=== PATIENT | female | born 1985 ===

== ENCOUNTER 2022-03-08 17:02 | Inpatient (IN) | payer OTHER ==
--- NOTE | 2022-03-08 22:05 | Ultrasound Report ---
ULTRASOUND OBSTETRIC LIMITED INDICATION / CLINICAL INFORMATION: Evaluate amniotic fluid index. COMPARISON: None available. FINDINGS: AMNIOTIC FLUID INDEX (cm) = 1.9 PRESENTATION: Cephalic. HEART RATE (beats per minute): 135 ADDITIONAL FINDINGS: None. IMPRESSION: 1. Abnormally decreased amniotic fluid index of 1.9 cm. 2. Single live intrauterine . Signer Name: Dav Goss MD Signed: 03/08/2022 10:01 PM Workstation Name: [id number]
[2022-03-09] MEDS ORDERED: CARBOPROST TROMETHAMINE 250 MCG/1 ML INJ IM PRN (00:32)
[2022-03-09] MEDS ORDERED: ePHEDrine SULFATE 50 MG/1 ML INJ IV PRN (00:32)
[2022-03-09] MEDS ORDERED: ACETAMINOPHEN 325 MG TAB PO PRN (00:32)
[2022-03-09] MEDS ORDERED: METHYLERGONOVINE MALEATE 0.2 MG/ML VIAL IM PRN (00:32)
[2022-03-09] MEDS ORDERED: BUTORPHANOL 2 MG/1 ML INJ IV PRN (00:32)
[2022-03-09] MEDS ORDERED: fentaNYL 100 MCG/2 ML INJ IV PRN (00:32)
--- NOTE | 2022-03-09 00:36 | History and Physical Report ---
History of Present Illness Date of examination: 03/09/22 Chief complaint: Oligohydramnios History of present illness: 37-year-old at 34-4/7 weeks gestation presents to OB triage from the office with a request for obtaining an OB limited ultrasound to evaluate the amniotic fluid index for the presence of oligohydramnios. There is no vaginal bleeding there are irregular contractions. There is good movement. The patient's clinical history is equivocal for leaking of fluid. OB ultrasound limited revealed an amniotic fluid index of 1.9 cm. This fulfills the contemporary clinical criteria for oligohydramnios. The OB ultrasound limited also revealed an estimated weight in the 7th percentile. Umbilical artery cord Dopplers were performed as well. The patient is admitted to labor and delivery for management of oligohydramnios. Past History Past Medical History: no pertinent history Past Surgical History: no surgical history Family/Genetic History: none Social history: no significant social history - Obstetrical History Expected Date of Delivery: 04/16/22 Actual Gestation: 34 Week(s) 4 Day(s) : 4 Para: 3 Medications and Allergies Allergies Allergy/AdvReac Type Severity Reaction Status Date / Time No Known Allergies Allergy Verified 03/09/22 00:45 Review of Systems All systems: negative - Vital Signs Vital signs: Vital Signs Pulse Pulse Ox 83 99 03/08/22 21:52 03/08/22 21:52 Temp Pulse Resp BP Pulse Ox 98.4 F 64 18 98/60 98 03/08/22 21:56 03/09/22 00:32 03/08/22 21:56 03/08/22 21:54 03/09/22 00:32 - Physical Exam Breasts: Positive: normal Cardiovascular: Regular rate Lungs: Positive: Normal air movement Abdomen: Positive: normal appearance Genitourinary (Female): Positive: normal external genitalia, normal perenium Vulva: both: normal Vagina: Positive: normal moisture Uterus: Positive: normal size Adnexa: both: normal Anus/Rectum: Positive: normal perianal skin Deep Tendon Reflex Grade: Normal +2 - Obstetrical FHR: category 1 Uterine Contraction Monitor Mode: External Uterine Contraction Pattern: Irregular Uterine Tone Measurement Phase: Contraction Uterine Contraction Intensity: Mild Results Result Diagrams: 03/09/22 01:00 All other labs normal. Ultrasound: report reviewed (OB US Limited= SLIUP. Vertex. Anterior placenta. EFW= 2030 g (7th %-ile). ABRAHAM= 1.9 cm. BPP= 6/8.), image reviewed (Umbilical artery cord doppler images reviewed.) Assessment and Plan - Patient Problems (1) 34 weeks gestation of Current Visit: Yes Status: Acute Plan to address problem: care is up-to-date at [facility]. Morning shift staff to obtain records from the office. GBS culture is ordered. (2) Oligohydramnios in franco in third trimester Current Visit: Yes Status: Acute Plan to address problem: The amniotic fluid index is 1.9 cm. Etiology is unknown. I do not suspect premature rupture membranes (PPROM) because ROM plus test is negative. I recommend induction of labor at 36 weeks gestation per ACOG Committee Opinion 831 (Medically indicated late- and early-term deliveries. ACOG Committee Opinion No. 831. [place] [employer]. Obstet Gynecol 2020;138:e359.). No glucocorticoids at this time as this patient's clinical scenario is not congruent with the criteria for the ALPS trial protocol. Consider maternal- medicine consultation. (3) Small for gestational age fetus during in third trimester Current Visit: Yes Status: Acute Plan to address problem: Estimated weight is in the 7th percentile. Umbilical cord artery Dopplers are normal. (4) AMA (advanced maternal age) multigravida 35+ Current Visit: Yes Status: Acute Plan to address problem: Obtain records from the office this morning to see if there are any test results for NIPT. Consider maternal- medicine consultation.
[2022-03-09] MEDS ORDERED: LACTATED RINGERS 1,000 ML IV SCH (00:45)
[2022-03-09] MEDS ORDERED: OXYTOCIN DRIP 30 UNITS/500 ML BAG IV SCH (01:00)
[2022-03-09 02:56] LABS: Basophils % (Auto) 0.3 % (0.0-1.8); Eosinophils # (Auto) 0.1 K/mm3 (0.0-0.4); Hematocrit 37.1 % (30.3-42.9); Hemoglobin 12.6 gm/dl (10.1-14.3); Lymphocytes # (Auto) 3.7 K/mm3 (1.2-5.4); Lymphocytes % (Auto) 38.3 % (13.4-35.0); Mean Corpuscular HGB Conc 34 % (30-34); Mean Corpuscular Volume 97 fl (79-97); Monocytes # (Auto) 0.9 K/mm3 (0.0-0.8); Platelet Count 241 K/mm3 (140-440); Red Blood Count 3.82 M/mm3 (3.65-5.03)
--- NOTE | 2022-03-09 03:54 | Ultrasound Report ---
US OB BPP wo non-stress, US OB velocimetry umbilcal art, US OB limited INDICATION / CLINICAL INFORMATION: IUGR COMPARISON: Limited OB ultrasound 03/08/2022. TECHNIQUE: Using a transcutaneous probe, multiple grayscale, color Doppler, and spectral Doppler imag es of the uterus and fetus were captured and stored. In addition, cortical velocities were measured a nd are documented below in centimeters per second with SD ratios and RIs as below. The biophysi yari profile this level was performed with measurement of biophysical variable. respiratory thor on, motion, posture and tone, and qualitative amniotic fluid volume. FINDINGS: Single cephalic fetus is demonstrated with heart rate of 150 bpm. The amniotic fluid index is low measuring 1.9 cm. Grade 2 anterior placenta is present no ultrasound abnormality of the placenta demonstrated. Biparietal Diameter = 8.43 cm = 34, 0 weeks, days Head Circumference = 29.22 cm = 32, 2 weeks, days Abdominal Circumference = 28.14 cm = 32, 1 weeks, days Femur Length = 6.47 cm = 33, 3 weeks, days Average Ultrasound Age (AUA) = 33, 0 weeks, days. EDC 04/27/2022. Clinical estimated gestational age is 34 weeks 4 days. Estimated weight = 2030 g growth percentile 7. BREATHING MOVEMENT = 2 GROSS BODY MOVEMENT = 2 TONE = 2 QUALITATIVE AMNIOTIC FLUID VOLUME = 0 TOTAL BIOPHYSICAL SCORE = 6/8. Umbilical cord A: Peak systolic velocities of 37.5, 44.2, and 43.6 were documented with corresponding end-diastolic lucinda ocities of 14.0, 19.4, and 43.3. The SD ratios are 2.68, 2.28, 1.01 respectively. The resistive indic es are 0.63, 0.56, 0.01 respectively. . IMPRESSION: 1. Oligohydramnios with little change since comparison study. 2. Single living fetus with heart rate of 150 bpm. 3. Biophysical profile score of 6/8 secondary to oligohydramnios. 4. Cord Dopplers as detailed. Signer Name: Reji Salas II, MD Signed: 03/09/2022 3:50 AM Workstation Name: [id number]
[2022-03-09] MEDS ORDERED: LIDOCAINE (2%) 20 MG/1 ML VIAL 20 ML MDV INFILTRATI ONE (09:05)
[2022-03-09] MEDS ORDERED: MINERAL OIL 30 ML ORAL LIQD ONE (09:06)
[2022-03-10 07:12] VITALS: BP 94/69
--- NOTE | 2022-03-10 07:14 | Ultrasound Report ---
US OB limited INDICATION / CLINICAL INFORMATION: oligohydramnios COMPARISON: Limited OB ultrasound 03/09/2022 TECHNIQUE: Using a transcutaneous probe, multiple grayscale, color Doppler, and spectral Doppler imag es of the uterus and fetus were captured and stored. FINDINGS: Clinical estimated gestational age is 34 weeks 5 days based on LMP of 07/10/2021. The single cephalic fetus demonstrates normal amniotic fluid index measuring 10.5 cm. heart rate is 132 bpm. IMPRESSION: 1. Normal amniotic fluid index measuring 10.5 cm. This has improved since comparison study. Signer Name: Reji Salas II, MD Signed: 03/10/2022 7:09 AM Workstation Name: [id number]
--- NOTE | 2022-03-10 07:19 | Event Note ---
Date: 03/10/22 S: Feels good O: ABRAHAM now 10.5, CAT I tracing A: 34.5 weeks with normal fluid P: Discharge home today Has F/U scheduled for Saturday and Saturday next week
== END 2022-03-10 07:51 | disposition home or self-care (01) | DRG 833 ==
LOC: TRG 17:02 → APU 20:39 → LD 03-09 00:32 → TRG 03-09 00:32 → LD 03-09 00:59
PROVIDERS: ADMIT Obstetrics & Gynecology; ATTEND Obstetrics & Gynecology
DX: O41.03X0 Oligohydramnios, third trimester, not applicable or unspecified (principal); O36.5930 Maternal care for other known or suspected poor fetal growth, third trimester, not applicable or unspecified; Z3A.34 34 weeks gestation of pregnancy; Z20.822 Contact with and (suspected) exposure to COVID-19
CPT/HCPCS: 36415; 76815; 76816; 76819; 76820; 82962; 83036; 84112; 85025; 86592; 86850; 86900; 86901; 87116; G0378; J7120; U0003

== ENCOUNTER 2022-04-09 06:21 | Outpatient (CLI) | payer OTHER ==
[2022-04-09 06:50] VITALS: BP 109/82
--- NOTE | 2022-04-09 09:12 | Ultrasound Report ---
ULTRASOUND OBSTETRIC LIMITED ULTRASOUND BIOPHYSICAL PROFILE INDICATION / CLINICAL INFORMATION: elyse. Clinical Gestational Age (GA): 39.0 weeks.days COMPARISON: None available. FINDINGS: BREATHING MOVEMENT = 2 GROSS BODY MOVEMENT = 2 TONE = 2 QUALITATIVE AMNIOTIC FLUID VOLUME = 2 TOTAL BIOPHYSICAL SCORE = 8/8 HEART RATE (beats per minute): 164 AMNIOTIC FLUID INDEX (cm) = 8.2 (normal = 7-24 cm) PRESENTATION: Cephalic. ADDITIONAL FINDINGS: None. IMPRESSION: 1. Biophysical Score = 8/8 Signer Name: Gilson Herrera MD Signed: 04/09/2022 9:07 AM Workstation Name: [email or web address]
== END 2022-04-09 09:02 | disposition home or self-care (01) ==
LOC: TRG 06:21 → APU 06:22 → TRG 09:02
PROVIDERS: ATTEND Obstetrics & Gynecology
DX: O09.893 Supervision of other high risk pregnancies, third trimester (principal); Z3A.39 39 weeks gestation of pregnancy
CPT/HCPCS: 36415; 59025; 76815; 76819; 84112

== ENCOUNTER 2022-04-13 05:56 | Outpatient (CLI) | payer OTHER ==
[2022-04-13] MEDS ORDERED: ACETAMINOPHEN 325 MG TAB PO PRN (08:00)
[2022-04-13] MEDS ORDERED: fentaNYL 100 MCG/2 ML INJ IV PRN (08:00)
[2022-04-13] MEDS ORDERED: MINERAL OIL 30 ML ORAL LIQD PO PRN (08:00)
[2022-04-13] MEDS ORDERED: BUTORPHANOL 2 MG/1 ML INJ IV PRN (08:00)
[2022-04-13] MEDS ORDERED: LACTATED RINGERS 1,000 ML IV SCH (08:00)
[2022-04-13 08:46] LABS: Hematocrit 35.2 % (30.3-42.9); Hemoglobin 11.9 gm/dl (10.1-14.3); Mean Corpuscular HGB Conc 34 % (30-34); Mean Corpuscular Volume 96 fl (79-97); Platelet Count 197 K/mm3 (140-440); Red Blood Count 3.67 M/mm3 (3.65-5.03)
[2022-04-13 09:19] VITALS: BP 118/79
== END 2022-04-13 23:59 | disposition home or self-care (01) ==
LOC: TRG 05:56 → LD 05:58 → UNDOADMIN 07:11 → LD 07:11 → TRG 07:27 → UNDODISIN 10:27 → TRG 23:59
PROVIDERS: ATTEND Obstetrics & Gynecology Gynecology
DX: O09.893 Supervision of other high risk pregnancies, third trimester (principal); Z3A.39 39 weeks gestation of pregnancy; Z20.828 Contact with and (suspected) exposure to other viral communicable diseases
CPT/HCPCS: 36415; 59025; 82962; 85027; 86850; 86900; 86901; U0003; G0378

== ENCOUNTER 2022-04-18 01:37 | Inpatient (IN) | payer OTHER ==
[2022-04-18] MEDS ORDERED: OXYTOCIN DRIP 30,000 MILLIUNITS/500 ML BAG IV ONE ×2 (04:20→08:30)
[2022-04-18] MEDS ORDERED: LACTATED RINGERS 1,000 ML ONE (04:20)
[2022-04-18] MEDS ORDERED: SODIUM CHLORIDE 0.9% 1000 ML 1,000 ML ONE (04:31)
[2022-04-18] MEDS ORDERED: TERBUTALINE 1 MG/1 ML INJ SUB-Q PRN (04:49)
[2022-04-18] MEDS ORDERED: ePHEDrine SULFATE 50 MG/1 ML INJ IV PRN (04:49)
[2022-04-18] MEDS ORDERED: BUTORPHANOL 2 MG/1 ML INJ IV PRN (04:49)
[2022-04-18] MEDS ORDERED: ACETAMINOPHEN 325 MG TAB PO PRN ×2 (04:49→08:00)
[2022-04-18] MEDS ORDERED: METHYLERGONOVINE MALEATE 0.2 MG/ML VIAL IM PRN (04:49)
[2022-04-18] MEDS ORDERED: CARBOPROST TROMETHAMINE 250 MCG/1 ML INJ IM PRN (04:49)
[2022-04-18] MEDS ORDERED: LOPERAMIDE 2 MG CAP PO PRN (04:49)
[2022-04-18] MEDS ORDERED: LIDOCAINE (2%) 20 MG/1 ML VIAL 20 ML MDV INFILTRATI ONE (04:49)
[2022-04-18] MEDS ORDERED: OXYTOCIN 10 UNIT/1 ML INJ IM PRN (04:49)
[2022-04-18] MEDS ORDERED: fentaNYL 100 MCG/2 ML INJ IV PRN (04:49)
[2022-04-18] MEDS ORDERED: miSOPROStol 200 MCG TAB PR PRN (04:49)
[2022-04-18] MEDS ORDERED: ONDANSETRON 4 MG/2 ML INJ IV PRN (04:49)
[2022-04-18] MEDS ORDERED: MINERAL OIL 30 ML ORAL LIQD PO PRN (04:49)
[2022-04-18] MEDS ORDERED: PENICILLIN G POTASSIUM 5 MIL.UNITS in SODIUM CHLORIDE 0.9% 100 ML IV ONE (04:53)
[2022-04-18] MEDS ORDERED: OXYTOCIN DRIP 30 UNITS/500 ML BAG IV SCH (05:00)
[2022-04-18] MEDS ORDERED: LACTATED RINGERS 1,000 ML IV SCH (05:00)
[2022-04-18] MEDS ORDERED: SODIUM CHLORIDE 0.9% 1000 ML 1,000 ML IV SCH (05:30)
[2022-04-18 07:35] LABS: Hematocrit 34.4 % (30.3-42.9); Hemoglobin 11.6 gm/dl (10.1-14.3); Mean Corpuscular HGB Conc 34 % (30-34); Mean Corpuscular Volume 95 fl (79-97); Platelet Count 209 K/mm3 (140-440); Red Blood Count 3.61 M/mm3 (3.65-5.03); Red Cell Distribution Width 13.1 % (13.2-15.2)
--- NOTE | 2022-04-18 07:42 | History and Physical Report ---
History of Present Illness Date of examination: 04/18/22 Date of admission: 04/18/22 04:49 Chief complaint: Contractions History of present illness: 37 y/o at 39-1/7 weeks presents to OBT reporting CTX. No VB or LOF. Good FM. She has GDMA1 and cHTN (not on medications). She was scheduled for IOL this evening. She is admitted to L&D in early labor. Past History Past Medical History: hypertension Past Surgical History: no surgical history Family/Genetic History: none Social history: no significant social history - Obstetrical History Expected Date of Delivery: 04/24/22 Actual Gestation: 39 Week(s) 1 Day(s) : 4 Para: 3 Hx # Term Pregnancies: 3 Medications and Allergies Allergies Allergy/AdvReac Type Severity Reaction Status Date / Time No Known Allergies Allergy Verified 03/09/22 00:45 Active Meds: Active Medications Acetaminophen (Acetaminophen 325 Mg Tab) 650 mg PO Q4H PRN PRN Reason: Pain MILD(1-3)/Fever >100.5/ANDRES Hydrocodone Bitart/Acetaminophen (Hydrocodone/Acetaminophen 5-325 Mg Tab) 2 each PO Q6H PRN PRN Reason: Pain, Moderate (4-6) Benzocaine/Menthol (Benzocaine/Menthol 20/0.5% [place] 56 Gm) 1 spray TP PRN PRN PRN Reason: Episiotomy Pain Docusate Sodium (Docusate Sodium 100 Mg Cap) 100 mg PO BID DEON Ibuprofen (Ibuprofen 800 Mg Tab) 800 mg PO Q6H DEON Magnesium Hydroxide (Magnesium Hydroxide (Mom) Oral Liqd Udc) 30 ml PO HS PRN PRN Reason: Constipation Multi-Ingredient Ointment (Lanolin/Zinc/Dimethicone (Lansinoh) 7 Gm) 1 applic TP PRN PRN PRN Reason: Sore Nipples Multivitamins/Iron/Calcium ( Tap48-Qh Fumarate-Folic Acid Vit Tab) 1 each PO QDAY DEON Sodium Chloride (Sodium Chloride 0.9% 10 Ml Flush Syringe) 10 ml IV PRN NR Witch Carline/Glycerin (Witch Carline/ Glycerin Pad) 1 each TP PRN PRN PRN Reason: Hemorrhoid/cleansing/soothing Review of Systems All systems: negative - Vital Signs Vital signs: Vital Signs Pulse BP Pulse Ox 80 115/78 97 04/18/22 02:12 04/18/22 02:12 04/18/22 02:12 Temp Pulse Resp BP Pulse Ox 98.0 F 79 108/69 97 04/18/22 05:51 04/18/22 07:39 04/18/22 07:36 04/18/22 07:39 - Physical Exam Breasts: Positive: normal Cardiovascular: Regular rate Lungs: Positive: Normal air movement Abdomen: Positive: normal appearance Genitourinary (Female): Positive: normal external genitalia, normal perenium Vulva: both: normal Vagina: Positive: normal moisture Uterus: Positive: enlarged Adnexa: both: normal Anus/Rectum: Positive: normal perianal skin Extremities: Positive: normal Deep Tendon Reflex Grade: Normal +2 - Obstetrical FHR: category 1 Uterine Contraction Monitor Mode: External Cervical Dilatation: 3 Cervical Effacement Percentage: 50 station: -3 Uterine Contraction Pattern: Regular Results Result Diagrams: 04/18/22 04:49 Abnormal lab results 04/18/22 Range/Units 04:49 RBC 3.61 L (3.65-5.03) M/mm3 RDW 13.1 L (13.2-15.2) % All other labs normal. Assessment and Plan - Patient Problems (1) 39 weeks gestation of Current Visit: Yes Status: Acute Plan to address problem: care is UTD at [facility]. She is GBS (+). (2) Gestational diabetes mellitus, class A1 Current Visit: Yes Status: Acute Plan to address problem: Diet controlled. Check random blood glucose now. Accuchecks q 1 hour in active labor. (3) Chronic hypertension in Current Visit: Yes Status: Acute Plan to address problem: Not on medications. No signs or symptoms of superimposed pre-eclampsia. (4) AMA (advanced maternal age) multigravida 35+ Current Visit: No Status: Acute (5) GBS (group B Streptococcus carrier), +RV culture, currently Current Visit: Yes Status: Acute Plan to address problem: Rx PCN in active labor. (6) Active labor at term Current Visit: Yes Status: Acute Plan to address problem: Expectant management for now. Augment with Pitocin prn.
--- NOTE | 2022-04-18 07:44 | Procedure Note ---
OB Delivery Note - Delivery Date of Delivery: 04/18/22 Surgeon: ERIKA LAWSON Estimated blood loss: 300cc - Vaginal Delivery presentation: vertex Delivery position: OA Intrapartum events: other(please specify) (AMA, GDMA1, cHTN) Delivery induction: none Delivery monitor: none Route of delivery: Delivery placenta: spontaneous Delivery cord: 3 umbilical vessels Episiotomy: none Delivery laceration: other (Michelle-clitoral laceration) Delivery repair: vicryl (Michelle-clitoral laceration repaired with 3-0 Vicryl) Anesthesia: local - Infant A at 1 minute: 8 at 5 minutes: 9 Infant Gender: Female
[2022-04-18] MEDS ORDERED: PENICILLIN G POTASSIUM 2.5 MIL.UNITS in SODIUM CHLORIDE 0.9% 50 ML IV SCH (08:00)
[2022-04-18] MEDS ORDERED: BENZOCAINE/MENTHOL 20/0.5% TOP SPRAY 56 GM TP PRN (08:00)
[2022-04-18] MEDS ORDERED: WITCH HAZEL/ GLYCERIN PAD TP PRN (09:00)
[2022-04-18] MEDS ORDERED: HYDROcodone/ACETAMINOPHEN 5-325 MG TAB PO PRN (09:00)
[2022-04-18] MEDS ORDERED: LANOLIN/ZINC/DIMETHICONE (LANSINOH) 7 GM TP PRN (09:00)
[2022-04-18] MEDS: IBUPROFEN 800 MG TAB PO SCH ×2 (11:15→23:54)
[2022-04-18] MEDS: PRENATAL VIT27-FE FUMARATE-FOLIC ACID VIT TAB PO SCH (11:16)
[2022-04-18] MEDS: DOCUSATE SODIUM 100 MG CAP PO SCH ×2 (11:16→23:55)
[2022-04-18] MEDS ORDERED: MAGNESIUM HYDROXIDE (MOM) ORAL LIQD UDC PO PRN (22:00)
[2022-04-19] MEDS: IBUPROFEN 800 MG TAB PO SCH ×5 (06:34→22:27)
[2022-04-19 08:05] LABS: Hematocrit 37.5 % (30.3-42.9); Hemoglobin 12.4 gm/dl (10.1-14.3); Mean Corpuscular HGB Conc 33 % (30-34); Mean Corpuscular Volume 98 fl (79-97); Platelet Count 196 K/mm3 (140-440); Red Blood Count 3.84 M/mm3 (3.65-5.03)
[2022-04-19] MEDS: DOCUSATE SODIUM 100 MG CAP PO SCH ×2 (10:19→22:27)
[2022-04-19] MEDS: PRENATAL VIT27-FE FUMARATE-FOLIC ACID VIT TAB PO SCH (10:19)
--- NOTE | 2022-04-19 10:59 | Progress Note ---
Assessment and Plan A: PP Day #1 CHTN (stable; no meds) GDM A1 (stable) P: Follow Routine Orders Continue Accuchecks as ordered D/C Home today per Patient Request RTO in 3 Weeks Subjective - Subjective Date of service: 04/19/22 Patient reports: appetite normal, voiding normally, pain well controlled, flatus, ambulating normally, other (Denies HAs, visual changes, N&V, and epigastic pain) [place]: doing well, bottle feeding Objective - Vital Signs Latest vital signs: Vital Signs Temp Pulse Resp BP Pulse Ox Pulse Ox 04/19/22 08:24 98.7 F 55 L 20 113/72 99 98 04/19/22 06:35 98 04/19/22 04:00 98 04/19/22 01:46 98.2 F 58 L 20 114/77 98 04/19/22 01:45 98 04/18/22 23:55 98 04/18/22 22:00 98 04/18/22 20:47 98.2 F 64 20 98/53 97 04/18/22 20:20 98 04/18/22 17:46 98.4 F 79 18 132/83 99 Intake and Output 04/18/22 04/19/22 04/19/22 22:59 06:59 14:59 Intake Total 1080 240 Output Total 300 Balance 780 240 Intake: Oral 480 240 Intake, Free Water 600 Output: Urine 300 Void 300 Other: Total, Intake Amount 480 240 Total, Output Amount 300 # Voids Void 1 1 - Exam Breasts: Present: normal Cardiovascular: Present: Regular rate Lungs: Present: Clear to auscultation, Normal air movement Abdomen: Present: normal appearance, soft, normal bowel sounds Uterus: Present: normal, firm, fundal height below umbilicus Extremities: Present: normal - Labs Labs: Abnormal lab results 04/19/22 Range/Units 06:42 WBC 11.2 H (4.5-11.0) K/mm3 MCV 98 H (79-97) fl RDW 13.0 L (13.2-15.2) %
--- NOTE | 2022-04-19 11:00 | Discharge Summary ---
Providers - Providers Date of Admission: 04/18/22 04:49 Date of discharge: 04/19/22 Attending physician: ERIKA LAWSON MD Primary care physician: ERIKA LAWSON MD Hospitalization Reason for admission: induction of labor Delivery: Episiotomy: none Laceration: 1st degree Other procedures: none complications: none Discharge diagnosis: IUP at term delivered [place] baby: female Condition at discharge: Good Disposition: 01 HOME / SELF CARE / HOMELESS Plan - Provider Discharge Summary Activity: routine, no sex for 6 weeks, no heavy lifting 4 weeks, no strenuous exercise Diet: routine Instructions: routine Additional instructions: [] Smoking cessation referral if applicable(refer to patient education folder for contact #) [] Refer to [facility]'s [facility] Booklet Call your doctor immediately for: * Fever > 100.5 * Heavy vaginal bleeding ( >1 pad per hour) * Severe persistent headache * Shortness of breath * Reddened, hot, painful area to leg or breast * Drainage or odor from incision. * Keep incision clean and dry at all times and follow doctor's instructions regarding bathing/showering - Follow up plan Follow up: ERIKA LAWSON MD [Primary Care Provider] - 05/10/22
[2022-04-20 09:31] VITALS: BP 116/23
[2022-04-20] MEDS: DOCUSATE SODIUM 100 MG CAP PO SCH (10:49)
[2022-04-20] MEDS: PRENATAL VIT27-FE FUMARATE-FOLIC ACID VIT TAB PO SCH (10:49)
[2022-04-20] MEDS: IBUPROFEN 800 MG TAB PO SCH (10:49)
== END 2022-04-20 11:48 | disposition home or self-care (01) | DRG 806 ==
LOC: TRG 01:37 → APU 01:42 → TRG 04:49 → LD 04:49 → OB 09:18
PROVIDERS: ADMIT Obstetrics & Gynecology Gynecology; ATTEND Obstetrics & Gynecology Gynecology
PROC: 10E0XZZ Delivery of Products of Conception, External Approach (ICD-10-PCS; principal; 2022-04-18)
PROC: 0HQ9XZZ Repair Perineum Skin, External Approach (ICD-10-PCS; 2022-04-18)
DX: O24.420 Gestational diabetes mellitus in childbirth, diet controlled (principal); O10.92 Unspecified pre-existing hypertension complicating childbirth; Z37.0 Single live birth; Z3A.39 39 weeks gestation of pregnancy; Z20.822 Contact with and (suspected) exposure to COVID-19; O99.824 Streptococcus B carrier state complicating childbirth; O70.0 First degree perineal laceration during delivery
CPT/HCPCS: 36415; 82962; 85027; 86850; 86900; 86901; G0378; J2540; U0003